=== PATIENT | male | born 1945 | race Caucasian/White ===

== ENCOUNTER → 2018-07-10 | Outpatient (CLI) | payer OTHER | END | disposition home or self-care (01) | LOC: OIH 07:57 | PROVIDERS: ATTEND Internal Medicine | DX: J84.10 Pulmonary fibrosis, unspecified (principal); J90 Pleural effusion, not elsewhere classified; J44.9 Chronic obstructive pulmonary disease, unspecified; M47.895 Other spondylosis, thoracolumbar region | CPT/HCPCS: 71046 ==

== ENCOUNTER → 2018-11-19 | Outpatient (CLI) | payer OTHER | END | disposition home or self-care (01) | LOC: OIH 14:44 | PROVIDERS: ATTEND Internal Medicine | DX: J98.11 Atelectasis (principal); J84.10 Pulmonary fibrosis, unspecified; J90 Pleural effusion, not elsewhere classified; I50.9 Heart failure, unspecified | CPT/HCPCS: 71046 ==